=== PATIENT | male | born 1930 | race Caucasian/White ===

== ENCOUNTER → 2017-02-18 | Outpatient (CLI) | payer MEDICARE ==
[2016-01-22 14:30] VITALS: BP 144/81
[~2017-02-18] MED LIST: AMIO200T2 PO; FINA5TAB4 PO; FURO20TA3 PO; POTA10TA12 PO; PRAV40TA2 PO; TAMS0.4C2 PO
--- NOTE | 2017-02-18 15:12 | CARD ---
APPROVED REPORT EXAM: Two-dimensional and M-mode echocardiogram with Doppler and color Doppler. Other Information Quality : Good INDICATION Atrial Fibrillation 2D DIMENSIONS Left Atrium(2D)4.0 (1.6-4.0cm)IVSd1.3 (0.7-1.1cm) Aortic Root(2D)3.6 (2.0-3.7cm)LVDd5.3 (3.9-5.9cm) LVOT Diameter2.2 (1.8-2.4cm)PWd1.3 (0.7-1.1cm) LVDs3.4 (2.5-4.0cm)FS (%) 36.1 % SV86.8 mlLVEF(%)65.3 (>50%) Aortic Valve AoV Peak Arnold.108.5cm/sAoV VTI22.8cm AO Peak GR.4.7mmHgLVOT Peak Arnold.73.8cm/s AO Mean GR.3mmHgAVA (VMAX)2.64cm2 AMARA (VTI)2.50cm2 Mitral Valve MV E Omqsnakb70.7cm/sMV DECEL [id number] MV A Oegxftaw63.5cm/sE/A Ratio2.6 Tricuspid Valve TR P. [id number]/sRAP NMYRTDNP1coAx TR Peak Gr.[id number] LEFT VENTRICLE The left ventricle is normal size. There is mild to moderate concentric left ventricular hypertrophy. Left ventricle systolic function is normal. The Ejection Fraction is 50-55%. There is normal LV segm ental wall motion. RIGHT VENTRICLE The right ventricle is normal size. The right ventricular systolic function is normal. ATRIA The left atrium is mildly dilated. The right atrium is mild to moderately dilated. Mobile septum note d. AORTIC VALVE The aortic valve is normal in structure and function. Doppler and Color Flow revealed no significant aortic regurgitation. There is no significant aortic valvular stenosis. MITRAL VALVE The mitral valve is thickened but opens well. There is no evidence of mitral valve prolapse. There is no mitral valve stenosis. Doppler and Color-flow revealed mild mitral regurgitation. TRICUSPID VALVE Doppler and Color Flow revealed mild tricuspid regurgitation. There is moderate pulmonary hypertensio n. The PA pressure was estimated at 48 mmHg. There is no tricuspid valve stenosis. PULMONIC VALVE The pulmonary valve is normal in structure and function. Doppler and Color Flow revealed no pulmonic valvular regurgitation. There is no pulmonic valvular stenosis. GREAT VESSELS The aortic root is normal in size. The ascending aorta is normal in size. The IVC is normal in size a nd collapses >50% with inspiration. PERICARDIAL EFFUSION There is no pleural effusion. There is no evidence of significant pericardial effusion. Critical Notification Critical Value: No <Conclusion> Left ventricle systolic function is normal. The Ejection Fraction is 50-55%. There is normal LV segmental wall motion. Mild mitral regurgitation. Mild tricuspid regurgitation. The PA pressure was estimated at 48 mmHg. There is no evidence of significant pericardial effusion.
== END | disposition home or self-care (01) ==
LOC: ECHO 13:46
PROVIDERS: ATTEND Internal Medicine Cardiovascular Disease
DX: I08.1 Rheumatic disorders of both mitral and tricuspid valves (principal); I48.91 Unspecified atrial fibrillation; I27.20 Pulmonary hypertension, unspecified
CPT/HCPCS: 93306